=== PATIENT | female | born 2000 | race Caucasian/White ===

== ENCOUNTER 2018-11-06 23:29 | Emergency (ER) | payer MEDICAID ==
[~2018-11-06] VITALS: Ht 162.6 cm; Wt 90.7 kg
[2018-11-06 23:35] VITALS: BP_SYST 117
[2018-11-07] MEDS ORDERED: MAG HYDROX/AL HYDROX/SIMETH 30 ML, DICYCLOMINE HCL 20 MG, LIDOCAINE VISCOUS 2% 15ML (PO... PO ONE ×3 (00:45)
[2018-11-07 01:16] LABS: HEMATOCRIT 38.6 % (36-48); HEMOGLOBIN 12.9 g/dL (12.0-16.0); MEAN CORPUSCULAR HEMOGLOBIN 30 pg (27-31); MEAN CORPUSCULAR HGB CONC 34 % (32-36); MEAN CORPUSCULAR VOLUME 89 fL (79.0-98.0); PLATELET COUNT (AUTO) 316 K/uL (130-430); RED BLOOD CELL COUNT(AUTO) 4.32 MIL/uL (4.2-6.2); RED CELL DISTRIBUTION WIDTH 13.5 % (9.0-15.0); WHITE BLOOD COUNT (AUTO) 10.7 K/uL (4.5-11.0)
[2018-11-07 01:26] LABS: CALCIUM 9.1 mg/dL (8.4-11.0); CREATININE 0.7 mg/dL (0.55-1.30); POTASSIUM 4.3 mmol/L (3.5-5.1)
[2018-11-07 01:32] LABS: ALBUMIN 3.7 g/dL (3.4-4.8); TOTAL BILIRUBIN 0.3 mg/dL (0.0-1.0)
[2018-11-07 01:34] LABS: ATYPICAL LYMPHOCYTES % 0 % (0-0); BAND % (MANUAL) 0 % (0-6); BASOPHILS % (MANUAL) 0 % (0-2); EOSINOPHILS % (MANUAL) 3 % (0-7); LYMPHOCYTES % (MANUAL) 41 % (20-46); METAMYELOCYTES % 0 % (0-0); MONOCYTES % (MANUAL) 4 % (0-11); MYELOCYTES % 1 % (0-0)
[2018-11-07] MEDS ORDERED: KETOROLAC TROMETHAMINE 60 MG/2 ML VIAL IM ONE (03:00)
[2018-11-07 03:15] VITALS: BP_SYST 117
== END 2018-11-07 03:15 | disposition home or self-care (01) ==
LOC: SED 23:29
DX: K80.50 Calculus of bile duct without cholangitis or cholecystitis without obstruction (principal); K29.70 Gastritis, unspecified, without bleeding
CPT/HCPCS: 36415; 76700-TC; 80053; 81002; 81025; 83690-TC; 85007; 85027; 96372; 99284; J1885; J2001

== ENCOUNTER 2023-03-02 22:08 | Emergency (ER) | payer MEDICAID ==
[~2023-03-02] VITALS: Ht 162.6 cm; Wt 99.8 kg
[2023-03-02 22:15] VITALS: BP_SYST 103; PULSE 83; RESP 16; TEMP 97.9; O2SAT 99
[2023-03-02] MEDS ORDERED: CIPR500T5 PO (23:01)
[2023-03-02] MEDS ORDERED: DOCU-144 PO (23:01)
[2023-03-02 23:11] VITALS: BP_SYST 120; PULSE 60; RESP 18; TEMP 97.9; O2SAT 95
== END 2023-03-02 23:11 | disposition home or self-care (01) ==
LOC: SED 22:08
DX: R19.7 Diarrhea, unspecified (principal); Z79.899 Other long term (current) drug therapy
CPT/HCPCS: 99283